=== PATIENT | male | born 1990 | race Caucasian/White ===

== ENCOUNTER → 2016-06-03 | Day surgery (SDC) ==
[2016-06-03 07:44] VITALS: BP 107/56
[2016-06-03 07:45] LABS: MANUAL DIFF NEEDED? NO
[2016-06-03 07:48] LABS: BASO% 0.5 % (0.0-0.8); EOS# 0.11 X1000 (0.0-0.7); EOS% 2.6 % (0.0-10.0); HEMATOCRIT 47.6 % (42.0-52.0); LYMPH# 1.28 X1000 (1.2-3.4); LYMPH% 30.2 % (20.5-51.1); MCH 30.8 PG (27-31); MCHC 33.6 g/dL (33-37); MCV 91.5 FL (81-99); MONO# 0.48 X1000 (0.11-0.59); MONO% 11.3 % (1.7-9.3); MPV 13.4 FL (7.4-10.4); NEUT% 55.4 % (42.2-75.2); PLT 118 X1000 (130-400)
[2016-06-03 07:58] LABS: INR 1.17; PROTIME 12.4 Seconds (9.2-11.7); PTT 32.2 Seconds (22.0-36.0)
[2016-06-03 08:18] LABS: ALBUMIN 4.2 g/dL (3.5-5.0); DIRECT BILIRUBIN 0.2 mg/dL (0.00-0.20); TOTAL BILIRUBIN 1.11 mg/dL (0.20-1.00)
== END | disposition home or self-care (01) ==
LOC: OPS 06:50
PROVIDERS: ATTEND Internal Medicine Gastroenterology
DX: R94.5 Abnormal results of liver function studies (principal); Z53.9 Procedure and treatment not carried out, unspecified reason; D50.0 Iron deficiency anemia secondary to blood loss (chronic); E46 Unspecified protein-calorie malnutrition; Z68.20 Body mass index [BMI] 20.0-20.9, adult; Z79.899 Other long term (current) drug therapy; Z79.51 Long term (current) use of inhaled steroids
CPT/HCPCS: 80076; 85025; 85610; 85730